=== PATIENT | male | born 1990 | race Caucasian/White ===

== ENCOUNTER → 2019-07-20 13:57 | Outpatient (CLI) | payer OTHER, SELFPAY ==
--- NOTE | 2019-07-20 14:06 | DI.RAD.S_ITS ---
PROCEDURE: XR ANKLE LT MIN 3V INDICATIONS: Rolled ankle/foot TECHNIQUE: 3 views of the ankle were acquired. COMPARISON: None. FINDINGS: Bones: There is a transverse fracture identified involving the base of the fifth metatarsal. No additional fractures are seen. In this is well maintained. No ankle fractures are evident. No suspicious osseous lesions or significant degenerative changes are present. Soft tissues: No tibiotalar joint effusion. Soft tissue swelling about the fifth metatarsal fracture is present. IMPRESSION: Nondisplaced fifth metatarsal base fracture. Dictated by: Dejan Chaudhary M.D. on 07/20/2019 at 13:26 Approved by: Dejan Chaudhary M.D. on 07/20/2019 at 13:28
--- NOTE | 2019-07-20 14:06 | DI.RAD.S_ITS ---
PROCEDURE: XR FOOT LT MIN 3V INDICATIONS: Rolled ankle/foot TECHNIQUE: 3 views of the foot were acquired. COMPARISON: None. FINDINGS: Bones: There is a nondisplaced fracture identified involving the base of the fifth metatarsal. No additional fractures are seen. No significant degenerative changes are appreciated. Soft tissues: No tibiotalar joint effusion. Soft tissue swelling overlying the base of the fifth metatarsal is present. No radiopaque foreign bodies. IMPRESSION: Nondisplaced fifth metatarsal base fracture. Dictated by: Dejan Chaudhary M.D. on 07/20/2019 at 13:32 Approved by: Dejan Chaudhary M.D. on 07/20/2019 at 13:32
== END ==
PROVIDERS: Visit Provider Physician Assistant
DX: S62.347A Nondisplaced fracture of base of fifth metacarpal bone, left hand, initial encounter for closed fracture (principal)
CPT/HCPCS: 73610; 73630